=== PATIENT | male | born 1945 | race Caucasian/White ===

== ENCOUNTER → 2017-07-08 | Outpatient (CLI) | payer OTHER ==
[~2017-07-08] MED LIST: ALT/10 PO; CRS/10 PO; EFFSR75 PO; FISHOIL PO; HYDR12.56 PO; MULTTAB58 PO; OMEP20CA59 PO; TRAVATAN 0.004% OPB
[2017-07-08 13:06] LABS: BASO % 0.3 %; BASO ABS # 0.01 K/uL (0-0.2); COMPLETE YES; EOS % 3.4 %; LYMPH % 31.3 %; LYMPH ABS # 1.21 K/uL (1.2-3.4); MEAN CORPUSCULAR HEMOGLOBIN 30.7 pg (25-34); MEAN CORPUSCULAR HGB CONC 34.9 g/dl (32-36); MEAN PLATELET VOLUME 10.9 fL (7.4-10.4); MONO % 11.4 %; NEUT % 53.6 %; PLATELET COUNT 177 K/uL (130-400); RED BLOOD COUNT 4.66 M/uL (4.7-6.1); WHITE BLOOD COUNT 3.87 K/uL (4.8-10.8)
[2017-07-08 13:29] LABS: URINE APPEARANCE CLEAR (CLEAR); URINE BILIRUBIN NEG (NEG); URINE COLOR YELLOW; URINE EPITHELIAL CELL AUTO 0-5 /lpf (0-5); URINE NITRITE NEG (NEG); URINE SPECIFIC GRAVITY 1.022 (1.000-1.030); UROBILINOGEN NEG (NEG)
[2017-07-08 13:38] LABS: MANUAL MICROSCOPIC REQUIRED? NO; REVIEW REQ? NO
[2017-07-08 13:49] LABS: ALT/SGPT 21 U/L (12-78); BLOOD UREA NITROGEN 20 mg/dl (7-18); BUN/CREATININE RATIO 20.2 (10-20); CARBON DIOXIDE 25 mmol/L (21-32); CHLORIDE 112 mmol/L (98-107); CHOLESTEROL 141 mg/dl (0-200); CREATININE 0.98 mg/dl (0.60-1.40); GLUCOSE 114 mg/dl (70-99); POTASSIUM 3.9 mmol/L (3.5-5.1); SODIUM 144 mmol/L (136-145); TRIGLYCERIDES 100 mg/dl (0-150); VERY LOW DENSITY LIPOPROT CALC 20 mg/dl
[2017-07-08 13:59] LABS: ALB/GLOB RATIO 1.3 (0.9-2); ALKALINE PHOSPHATASE 104 U/L (45-117); AST/SGOT 23 U/L (15-37); CHOLESTEROL/HDL RATIO 3.7; HDL CHOLESTEROL 38 mg/dl; LDL CHOLESTEROL CALCULATED 83 mg/dl
== END | disposition home or self-care (01) ==
LOC: C.LABMFLN 10:05
PROVIDERS: ATTEND Physician Assistant
DX: I10 Essential (primary) hypertension (principal); E78.5 Hyperlipidemia, unspecified; F41.9 Anxiety disorder, unspecified; K21.9 Gastro-esophageal reflux disease without esophagitis

== ENCOUNTER → 2018-02-11 | Outpatient (CLI) | payer OTHER ==
[2018-02-11 12:27] LABS: BASO % 0.2 %; BASO ABS # 0.01 K/uL (0-0.2); EOS % 3.7 %; EOS ABS # 0.15 K/uL (0-0.5); HEMATOCRIT 42.6 % (42-52); HEMOGLOBIN 14.5 g/dL (14.0-18.0); IG# 0.01 K/uL (0.00-0.02); LYMPH % 33.7 %; LYMPH ABS # 1.37 K/uL (1.2-3.4); MEAN CELL VOLUME 88.4 fL (80-100); MEAN CORPUSCULAR HEMOGLOBIN 30.1 pg (25-34); MEAN PLATELET VOLUME 10.7 fL (7.4-10.4); MONO % 13.5 %; MONO ABS # 0.55 K/uL (0.11-0.59); NEUT % 48.7 %; NEUT ABS # 1.97 K/uL (1.4-6.5); PLATELET COUNT 182 K/uL (130-400); RED CELL DISTRIBUTION WIDTH CV 12.5 % (11.5-14.5); RED CELL DISTRIBUTION WIDTH SD 40.2 fL (36.4-46.3); WHITE BLOOD COUNT 4.06 K/uL (4.8-10.8)
[2018-02-11 13:03] LABS: ALBUMIN 4.1 gm/dl (3.4-5.0); ALT/SGPT 26 U/L (12-78); AST/SGOT 30 U/L (15-37); BLOOD UREA NITROGEN 16 mg/dl (7-18); CALCIUM 8.6 mg/dl (8.5-10.1); CARBON DIOXIDE 27 mmol/L (21-32); CREATININE 1.06 mg/dl (0.60-1.40); GLUCOSE 108 mg/dl (70-99); SODIUM 143 mmol/L (136-145)
[2018-02-11 13:12] LABS: HEMOGLOBIN A1C 5.6 % (4.5-5.6)
[2018-02-11 13:14] LABS: ALKALINE PHOSPHATASE 104 U/L (45-117); CHOLESTEROL 117 mg/dl (0-200); LDL CHOLESTEROL CALCULATED 59 mg/dl; TOTAL PROTEIN 7.7 gm/dl (6.4-8.2)
== END | disposition home or self-care (01) ==
LOC: C.LABMFLN 09:02
PROVIDERS: ATTEND Physician Assistant
DX: I10 Essential (primary) hypertension (principal); E78.5 Hyperlipidemia, unspecified; K21.9 Gastro-esophageal reflux disease without esophagitis; R73.01 Impaired fasting glucose

== ENCOUNTER 2020-10-17 18:30 | Inpatient (IN) ==
[2020-10-17] MEDS ORDERED: SODIUM CHLORIDE 0.9% 1000ML 1,000 ML IV SCH ×2 (19:02→19:15)
[2020-10-17] MEDS ORDERED: cefOXitin 2,000 MG/60 ML BAG IV STA (19:02)
--- NOTE | 2020-10-17 19:02 | Emergency Department Note ---
History of Present Illness General Chief complaint: Referred by Doctor Stated complaint: JUST HAD A CT AND DR PEREZ OVER Time Seen by Provider: 10/17/20 18:46 History of Present Illness Patient is a 74-year-old male with past medical history significant for hypertension, dyslipidemia, GERD, and BPH, who presents emergency department from CT for evaluation of an abnormal CT scan performed about an hour ago. Alicia ent was seen at his primary care provider's office this morning after he woke with very low right lower quadrant pain around 0300 today. Pain was dull but constant in nature and worse with certain movement like walking. He did not take anything for discomfort today, and currently rates his pain a 6/10. He had an appointment with his primary care provider, and an outpatient CT scan about an hour ago which is concerning for acute appendicitis. Last oral intake was clear broth at 1200 today. Patient did vomit in CT. Of note, patient contracted COVID-19 in mid August 2020. He did require an 8- day hospitalization at [facility] over [facility], and he reports that he was diagnosed with a bilateral pneumonia. He reports he had a recent repeat chest x-ray for follow-up, which was "clear." Home Medications Medication Instructions Recorded Confirmed Type aspirin 81 mg tablet,delayed 81 mg PO DAILY #90 tab 08/11/19 10/17/20 History release multivitamin 1 tab PO DAILY 08/11/19 10/17/20 History sildenafil (pulm.hypertension) 20 20 mg PO .COMPLEX #20 tab 08/26/19 10/17/20 Rx mg tablet travoprost 0.004 % eye drops 1 drops OP QPM 08/26/19 10/17/20 History metoprolol succinate 25 mg See Rx Instructions .ROUTE 05/03/20 10/17/20 Rx tablet,extended release 24 hr .COMPLEX #90 tablet tamsulosin 0.4 mg capsule 0.8 mg PO DAILY #180 cap 05/11/20 10/17/20 Rx omeprazole 40 mg capsule,delayed 40 mg PO DAILY #30 cap 05/28/20 10/17/20 Rx release rosuvastatin 20 mg tablet See Rx Instructions .ROUTE 05/31/20 10/17/20 Rx .COMPLEX #90 tablet ramipril 10 mg capsule 10 mg PO DAILY #90 cap 06/25/20 10/17/20 Rx fexofenadine 180 mg tablet 180 mg PO DAILY #90 tab 10/03/20 10/17/20 Rx venlafaxine 75 mg capsule,extended 75 mg PO DAILY #90 cap 10/03/20 10/17/20 Rx release 24 hr Allergies Allergy/AdvReac Type Severity Reaction Status Date / Time No Known Allergies Allergy Verified 10/17/20 11:13 Past Med/Surg History Medical History (Updated 10/17/20 @ 19:07 by Bashir Retana) Anxiety Celiac artery stenosis Erectile dysfunction GERD (gastroesophageal reflux disease) Glaucoma (Unknown) Hyperlipidemia Hypertension Impaired fasting glucose Nocturia Surgical History History of cardiac catheterization History of hand surgery History of lithotripsy History of repair of rotator cuff History of tonsillectomy and adenoidectomy Family History Mother Breast cancer Stroke MVA (motor vehicle accident) Father Stroke MVA (motor vehicle accident) Family/Other MVA (motor vehicle accident) Sister Cancer Brother Colorectal cancer Lung cancer Denies family history of Ovarian cancer Prostate cancer Myocardial infarction Social History Smoking Status: Never smoker Age Started Using Tobacco: 16; Age Quit Using Tobacco: 35; packs per day: 2.5; Second Hand Exposure: No; Hx Alcohol Use: Yes Alcohol type: beer Hx Substance Use: No Preferred Language: Lithuanian Communication Ability: Effective Visual Impairment: Partially Limited Hearing Ability: Use of Hearing Aid [place]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 Required: No Beliefs That Will Affect Care: None marital status: Current Living Situation: Spouse and Family Current Living Situation Comment: 3 great-granddaughters current occupational status: retired Feels Safe at Home: Yes Childhood Exposure to Second-Hand Smoke: No caffeine: Yes (decaf coffee, tea) during the past year weight has: remained stable Dental Care, Regularly: Yes Physical Activity Frequency: Daily Seatbelt Use: always Sunscreen Use: Yes (sometimes) Do you think of yourself as: straight/heterosexual Review of Systems A total of 10 systems reviewed and were otherwise negative Physical Exam Vital Signs Vital Signs - 24 hr 10/17/20 18:43 Temperature 36.4 C L Temperature Source Oral Pulse Rate 76 Pulse Rhythm Regular Pulse Strength Normal Respiratory Rate 20 Blood Pressure 132/75 Blood Pressure Mean 94 Blood Pressure Position Sitting Pulse Oximetry 95 Oxygen Delivery Method Room Air Sepsis Recent Fever Within 48 Hours No Sepsis New/Unexplained Change in Mental Status No Sepsis Action Taken by Nursing No Action Required CONSTITUTIONAL: Patient is a pleasant, well-appearing 74-year-old male who is awake and alert and in no acute distress. HEENT: Normocephalic, atraumatic. Pupils equal, round, reactive to light and accommodation. EOMs intact without nystagmus. Sclera are anicteric. Tympanic membranes intact, with normal landmarks. External canals are clear. Oral and nasopharynx are clear. Mucous membranes are moist. CARDIOVASCULAR: Regular rate and rhythm. Peripheral pulses easily palpable. RESPIRATORY: Breath sounds equal and clear to auscultation. ABDOMEN: Bowel sounds are present. Abdomen is soft, nondistended, nontender to percussion throughout, and tender to palpation in the right lower quadrant, with voluntary guarding. INTEGUMENTARY: No lesions or rash, normal skin turgor. LYMPH: No lymphadenopathy. Course Course The patient was seen and assessed as above. Old records were reviewed. BMP from earlier today was within normal limits. CT scan of the abdomen pelvis with IV and oral contrast notes a dilated fluid-filled appendix with marked periappendiceal stranding. No evidence for abscess. No free air. Preoperative testing was ordered including an EKG, chest x-ray, CBC and a Covid test. The patient was hydrated with normal saline solution. Consultation was placed with Dr. Lam with general surgery. He requested 2 g of Mefoxin be ordered. CBC notes a normal white count at 8100. Slight anemia noted. Chest x-ray noted no focal consolidation. Mild interstitial thickening with a basilar predominance noted. This is likely residual from the patient's Covid pneumonia. Dr. Lam saw the patient in the emergency department, and plan is to take him to the OR this evening for appendectomy. Case was reviewed with attending physician. Administered Medications Sodium Chloride (Nss 1000ml) 1,000 mls @ 999 mls/hr IV .Q1H1M BJ Stop: 10/17/20 20:02 Last Admin: 10/17/20 19:30 Dose: 999 mls/hr Documented by: [id number] Discontinued Medications Cefoxitin Sodium (Mefoxin) 2,000 mg in 60 mls @ 100 mls/hr IV NOW STA Stop: 10/17/20 19:37 Last Admin: 10/17/20 19:29 Dose: 100 mls/hr Documented by: [id number] Medical Decision Making Differential Diagnosis Differential diagnoses included UTI, pyelonephritis, renal colic, acute appendicitis, hernia, shingles, bowel obstruction, perforation, abscess, mus culoskeletal pain, among others. Medical Records Attestation: I reviewed the patient's medical records. Home Medications Current Medication List: was personally reviewed by me Laboratory Data Attestation: I reviewed the patient's lab results. Result diagrams: 10/17/20 19:02 Lab Results 10/17/20 10/17/20 10/17/20 Range/Units 19:02 19:03 19:03 WBC 8.18 (4.8-10.8) K/uL RBC 4.27 L (4.7-6.1) M/uL Hgb 13.2 L (14.0-18.0) g/dL Hct 39.4 L (42-52) % MCV 92.3 (80-100) fL MCH 30.9 (25-34) pg MCHC 33.5 (32-36) g/dL RDW Std Deviation 46.8 H (36.4-46.3) fL RDW Coeff of Zheng 14.0 (11.5-14.5) % Plt Count 192 (130-400) K/uL MPV 9.4 (7.4-10.4) fL Immature Gran % (Auto) 0.1 % Neut % (Auto) 63.4 % Lymph % (Auto) 20.0 % Hamlin % (Auto) 15.2 % Eos % (Auto) 1.2 % Baso % (Auto) 0.1 % Neut # (Auto) 5.18 (1.4-6.5) K/uL Lymph # (Auto) 1.64 (1.2-3.4) K/uL Hamlin # (Auto) 1.24 H (0.11-0.59) K/uL Eos # (Auto) 0.10 (0-0.5) K/uL Baso # (Auto) 0.01 (0-0.2) K/uL Immature Gran # (Auto) 0.01 (0.00-0.02) K/uL COVID-19 [facility] SARS-CoV-2, RNA, NAAT NEGATIVE (NEGATIVE) Imaging Data Attestation: I personally reviewed and interpreted this imaging study as follows: Radiologist's Impression: CT abd pelvis oral and IV con CLINICAL HISTORY: R10.31 - Right lower quadrant pain COMPARISON STUDY: None. TECHNIQUE: The patient was scanned following administration of dilute oral contrast, and in a dynamic helical fashion during intravenous administration of 93 cc of Optiray 320. The patient vomited 70 seconds into the scan. A dose lowering technique was utilized adhering to the principles of ALARA. CT DOSE: 649.39 mGy.cm FINDINGS: Lower chest: There is subtle groundglass attenuation the lung bases, atelectatic versus infectious/inflammatory. Liver: The contrast-enhanced liver is normal in size, contour, and attenuation. There is no intrahepatic biliary ductal dilatation. The hepatic veins and portal veins are patent. Gallbladder: Unremarkable. Spleen: Normal in size and attenuation. Pancreas: Unremarkable. Adrenal glands: Unremarkable. Kidneys: There are small bilateral renal cysts. There is no evidence of hydronephrosis. Bowel: There are no transition zones to indicate bowel obstruction. There is no evidence of acute diverticulitis. There is a dilated fluid-filled appendix with marked periappendiceal stranding.. There is no drainable periappendiceal abscess. Peritoneum: There is no intraperitoneal free air or abdominal ascites. Vasculature: The abdominal aorta is normal in course and caliber. Adenopathy: None. Pelvic viscera: The prostate is enlarged. Skeletal structures: No destructive osseous lesions are seen. IMPRESSION: 1. Acute appendicitis. Surgical consultation is recommended. 2. Prostatomegaly 3. Lower lung zone groundglass opacities, atelectatic versus infectious/inflammatory MDM Narrative See ED course. Impression & Plan Acute appendicitis Discharge Plan Visit Data Chief Complaint: Referred by Doctor Stated Complaint: JUST HAD A CT AND REF OVER ED Provider: Matthew Molina ED Midlevel Provider: Bashir Retana Discharge Problem: Acute appendicitis Patient Disposition: Being Evaluated by Surgeon Forms Stand Alone Forms: My [facility] Prescriptions Prescriptions: No Action metoprolol succinate 25 mg tablet extended release 24 hr See Rx Instructions .ROUTE .COMPLEX Qty: 90 RF: 1 tamsulosin 0.4 mg capsule 0.8 mg PO DAILY Qty: 180 RF: 1 omeprazole 40 mg capsule,delayed release(DR/EC) 40 mg PO DAILY Qty: 30 RF: 5 rosuvastatin 20 mg tablet See Rx Instructions .ROUTE .COMPLEX Qty: 90 RF: 1 ramipril 10 mg capsule 10 mg PO DAILY Qty: 90 RF: 1 fexofenadine [Tasha Allergy] 180 mg tablet 180 mg PO DAILY Qty: 90 RF: 1 venlafaxine 75 mg capsule,extended release 24hr 75 mg PO DAILY Qty: 90 RF: 1 aspirin 81 mg tablet,delayed release (DR/EC) 81 mg PO DAILY Qty: 90 RF: 0 multivitamin tablet 1 tab PO DAILY RF: 0 Travatan Z 0.004 % drops 1 drops OP QPM RF: 0 sildenafil (pulm.hypertension) 20 mg tablet 20 mg PO .COMPLEX Qty: 20 RF: 2 Referrals Referrals: Soniya Will PA-C [Primary Care Provider] - Discharge Problem: Acute appendicitis Qualifiers: Acute appendicitis type: with localized peritonitis Appendicitis gangrene presence: without gangrene Appendicitis perforation presence: without perforation Appendicitis abscess presence: without abscess Qualified Code(s): K35.30 - Acute appendicitis with localized peritonitis, without perforation or gangrene
[2020-10-17 19:20] LABS: Basophils # (auto) 0.01 K/uL (0-0.2); Basophils % (auto) 0.1 %; Eosinophils % (auto) 1.2 %; Hematocrit (blood only) 39.4 % (42-52); Hemoglobin 13.2 g/dL (14.0-18.0); Immature Granulocytes # (auto) 0.01 K/uL (0.00-0.02); Immature Granulocytes % (auto) 0.1 %; Lymphocytes # (auto) 1.64 K/uL (1.2-3.4); Mean Corpuscular Hemoglobin 30.9 pg (25-34); Mean Corpuscular Hgb Conc 33.5 g/dL (32-36); Mean Corpuscular Volume 92.3 fL (80-100); Mean Platelet Volume 9.4 fL (7.4-10.4); Monocytes # (auto) 1.24 K/uL (0.11-0.59); Monocytes % (auto) 15.2 %; Neutrophils # (auto) 5.18 K/uL (1.4-6.5); Neutrophils % (auto) 63.4 %; Platelet Count 192 K/uL (130-400); RDW Standard Deviation 46.8 fL (36.4-46.3); Red Blood Count 4.27 M/uL (4.7-6.1); White Blood Count 8.18 K/uL (4.8-10.8)
--- NOTE | 2020-10-17 19:22 | XRay Report ---
XR chest 1V portable CLINICAL HISTORY: Preoperative chest COMPARISON STUDY: 12/18/2010 FINDINGS: The heart is the upper limits of normal in size. There is aortic tortuosity. There is no lo bar consolidation. There is minor nonspecific interstitial thickening with a basilar predominance.[ IMPRESSION: 1. No evidence of focal pulmonary consolidation 2. Mild interstitial thickening with a basilar predominance ACT 112: Negative or not required by law. Electronically signed by: Kishore Solorzano M.D. 10/17/2020 7:21 PM
--- NOTE | 2020-10-17 19:42 | History & Physical Report ---
Date of Service October 17, 2020 Assessment & Plan (1) Acute appendicitis: Patient with acute appendicitis. Plan is for laparoscopic appendectomy possible open appendectomy He may need his drain in several days in the hospital depending on her findings We will retest him for Covid Acute appendicitis type: with localized peritonitis Appendicitis abscess presence: without abscess Appendicitis gangrene presence: without gangrene Appendicitis perforation presence: without perforation Qualified Code(s): K35.30 - Acute appendicitis with localized peritonitis, without perforation or gangrene History of Present Illness Primary Care Provider: Soniya Will PA-C 74-year-old male who presents the emergency room with persistent abdominal pain localized to the right lower quadrant Found on CAT scan to have acute appendicitis On 08/20/2020 he did test positive for Covid Allergies Allergy/AdvReac Type Severity Reaction Status Date / Time No Known Allergies Allergy Verified 10/17/20 11:13 Home Medications Medication Instructions Recorded Confirmed Type aspirin 81 mg tablet,delayed 81 mg PO DAILY #90 tab 08/11/19 10/17/20 History release multivitamin 1 tab PO DAILY 08/11/19 10/17/20 History sildenafil (pulm.hypertension) 20 20 mg PO .COMPLEX #20 tab 08/26/19 10/17/20 Rx mg tablet travoprost 0.004 % eye drops 1 drops OP QPM 08/26/19 10/17/20 History metoprolol succinate 25 mg See Rx Instructions .ROUTE 05/03/20 10/17/20 Rx tablet,extended release 24 hr .COMPLEX #90 tablet tamsulosin 0.4 mg capsule 0.8 mg PO DAILY #180 cap 05/11/20 10/17/20 Rx omeprazole 40 mg capsule,delayed 40 mg PO DAILY #30 cap 05/28/20 10/17/20 Rx release rosuvastatin 20 mg tablet See Rx Instructions .ROUTE 05/31/20 10/17/20 Rx .COMPLEX #90 tablet ramipril 10 mg capsule 10 mg PO DAILY #90 cap 06/25/20 10/17/20 Rx fexofenadine 180 mg tablet 180 mg PO DAILY #90 tab 10/03/20 10/17/20 Rx venlafaxine 75 mg capsule,extended 75 mg PO DAILY #90 cap 10/03/20 10/17/20 Rx release 24 hr Past Med/Surg History Medical History (Updated 10/17/20 @ 19:07 by Bashir Retana) Anxiety Celiac artery stenosis Erectile dysfunction GERD (gastroesophageal reflux disease) Glaucoma (Unknown) Hyperlipidemia Hypertension Impaired fasting glucose Nocturia Surgical History History of cardiac catheterization History of hand surgery History of lithotripsy History of repair of rotator cuff History of tonsillectomy and adenoidectomy Family History Mother Breast cancer Stroke MVA (motor vehicle accident) Father Stroke MVA (motor vehicle accident) Family/Other MVA (motor vehicle accident) Sister Cancer Brother Colorectal cancer Lung cancer Denies family history of Ovarian cancer Prostate cancer Myocardial infarction Social History Smoking Status: Never smoker Age Started Using Tobacco: 16; Age Quit Using Tobacco: 35; packs per day: 2.5; Second Hand Exposure: No; Hx Alcohol Use: Yes Alcohol type: beer Hx Substance Use: No Preferred Language: Emirati Communication Ability: Effective Visual Impairment: Partially Limited Hearing Ability: Use of Hearing Aid Inspection And Testing Supervisor Required: No Beliefs That Will Affect Care: None marital status: Current Living Situation: Spouse and Family Current Living Situation Comment: 3 great-granddaughters current occupational status: retired Feels Safe at Home: Yes Childhood Exposure to Second-Hand Smoke: No caffeine: Yes (decaf coffee, tea) during the past year weight has: remained stable Dental Care, Regularly: Yes Physical Activity Frequency: Daily Seatbelt Use: always Sunscreen Use: Yes (sometimes) Do you think of yourself as: straight/heterosexual Review of Systems All systems reviewed & are unremarkable except as noted in HPI & below Physical Exam Constitutional: well developed; no acute distress Eyes: + anicteric sclerae Respiratory: normal respiratory effort; no respiratory distress Cardiovascular: Rate/Rhythm: regular rate Gastrointestinal (Abdomen): Percussion/Palpation: + abdomen tender and abdomen soft Patient has tenderness in right lower quadrant Musculoskeletal: Head/Neck/Chest: head atraumatic Skin: no rashes, warm and dry Neurologic: awake Psychiatric: Orientation: alert Results & Data ([facility]) Vital Signs (Past 12 Hours) Vital Signs Temp Pulse Resp BP Pulse Ox 10/17/20 18:43 36.4 C L 76 20 132/75 95 I did review his CAT scan
[2020-10-17] MEDS ORDERED: ePHEDrine sulfate 50 MG/ML AMP IV PRN (20:00)
[2020-10-17] MEDS ORDERED: ONDANSETRON INJ 2 MG/ML 2 ML VIAL IV PRN ×2 (20:00→21:32)
[2020-10-17] MEDS ORDERED: HYDROmorphone INJ 1 MG/ML SYRINGE IV PRN ×2 (20:00→21:32)
[2020-10-17] MEDS ORDERED: fentaNYL citrate 100 MCG/2 ML VIAL IV PRN (20:00)
[2020-10-17] MEDS ORDERED: ATROPINE SULFATE 0.1 MG/ML 10ML SYR IV PRN (20:00)
[2020-10-17] MEDS ORDERED: LABETALOL HCL IV 5 MG/ML 20ML IV PRN (20:00)
[2020-10-17] MEDS ORDERED: MEPERIDINE HCL 25 MG/ML CARP/VIAL IV PRN (20:00)
[2020-10-17] MEDS ORDERED: PHENYLEPHRINE 100MCG/ML 5ML SYR IV PRN (20:00)
[2020-10-17] MEDS ORDERED: BUPIVACAINE 0.5 % 5 MG/1 ML MPF 30ML VIAL ONE (20:01)
--- NOTE | 2020-10-17 20:02 | Anesthesiology Consultation ---
Date of Service October 17, 2020 The patient tested positive for Covid 19 on 08/20/20. He tested negative for Covid 19 today. Assessment & Plan (1) Encounter for pre-operative examination: Chart Review Chart Review: Acceptable Risk for Surgery and Patient NOT seen in Pre Admission Testing Consults Requested none History Surgery Operation Date: 10/17/20 19:50 Proposed Procedures p Laparoscopic Appendectomy - Mike Lam MD, FACS Height/Weight Height: 5 ft 7 in Weight: 70.7 kg Allergies Allergy/AdvReac Type Severity Reaction Status Date / Time No Known Allergies Allergy Verified 10/17/20 11:13 Medications Home Medications Medication Instructions Recorded Confirmed Last Taken aspirin 81 mg tablet,delayed 81 mg PO DAILY #90 tab 08/11/19 10/17/20 Unknown release multivitamin 1 tab PO DAILY 08/11/19 10/17/20 Unknown sildenafil (pulm.hypertension) 20 20 mg PO .COMPLEX #20 tab 08/26/19 10/17/20 Unknown mg tablet travoprost 0.004 % eye drops 1 drops OP QPM 08/26/19 10/17/20 Unknown metoprolol succinate 25 mg See Rx Instructions .ROUTE 05/03/20 10/17/20 Unknown tablet,extended release 24 hr .COMPLEX #90 tablet tamsulosin 0.4 mg capsule 0.8 mg PO DAILY #180 cap 05/11/20 10/17/20 Unknown omeprazole 40 mg capsule,delayed 40 mg PO DAILY #30 cap 05/28/20 10/17/20 Unknown release rosuvastatin 20 mg tablet See Rx Instructions .ROUTE 05/31/20 10/17/20 Unknown .COMPLEX #90 tablet ramipril 10 mg capsule 10 mg PO DAILY #90 cap 06/25/20 10/17/20 Unknown fexofenadine 180 mg tablet 180 mg PO DAILY #90 tab 10/03/20 10/17/20 Unknown venlafaxine 75 mg capsule,extended 75 mg PO DAILY #90 cap 10/03/20 10/17/20 Unknown release 24 hr NPO Date Last Intake of Fluids: 10/17/20 Time Last Intake of Fluids: 12:00 Date Last Intake of Solids: 10/17/20 Time Last Intake of Solids: 12:00 Past Medical History Medical History (Updated 10/17/20 @ 20:05 by Hair De Dios MD) Anxiety Celiac artery stenosis Erectile dysfunction GERD (gastroesophageal reflux disease) Glaucoma (Unknown) Hyperlipidemia Hypertension Impaired fasting glucose Nocturia Past Family History Family History Mother Breast cancer Stroke MVA (motor vehicle accident) Father Stroke MVA (motor vehicle accident) Family/Other MVA (motor vehicle accident) Sister Cancer Brother Colorectal cancer Lung cancer Denies family history of Ovarian cancer Prostate cancer Myocardial infarction Past Surgical History Surgical History History of cardiac catheterization History of hand surgery History of lithotripsy History of repair of rotator cuff History of tonsillectomy and adenoidectomy Social History Smoking Status: Never smoker tobacco type: cigarettes Hx Alcohol Use: Yes Alcohol type: beer Hx Substance Use: No Physical Exam Vital Signs Last Vital Signs Temp 36.4 C L 10/17/20 18:43 Pulse 76 10/17/20 18:43 Resp 20 10/17/20 18:43 BP 132/75 10/17/20 18:43 Pulse Ox 95 10/17/20 18:43 Testing Laboratory Results 10/17/20 19:02 Electrocardiogram Date: 10/17/20 Findings: + NSST changes (inferior) SR with occasional PVCs, rate 75 Chest X-Ray Date: 10/17/20 XR chest 1V portable CLINICAL HISTORY: Preoperative chest COMPARISON STUDY: 12/18/2010 FINDINGS: The heart is the upper limits of normal in size. There is aortic tortuosity. There is no lobar consolidation. There is minor nonspecific interstitial thickening with a basilar predominance.[ IMPRESSION: 1. No evidence of focal pulmonary consolidation 2. Mild interstitial thickening with a basilar predominance ACT 112: Negative or not required by law. Electronically signed by: Kishore Solorzano M.D. 10/17/2020 7:21 PM Dictated: 10/17/201919Transcribed: 10/17/[address] abd pelvis oral and IV con CLINICAL HISTORY: R10.31 - Right lower quadrant pain COMPARISON STUDY: None. TECHNIQUE: The patient was scanned following administration of dilute oral contrast, and in a dynamic helical fashion during intravenous administration of 93 cc of Optiray 320. The patient vomited 70 seconds into the scan. A dose lowering technique was utilized adhering to the principles of ALARA. CT DOSE: 649.39 mGy.cm FINDINGS: Lower chest: There is subtle groundglass attenuation the lung bases, atelectatic versus infectious/inflammatory. Liver: The contrast-enhanced liver is normal in size, contour, and attenuation. There is no intrahepatic biliary ductal dilatation. The hepatic veins and portal veins are patent. Gallbladder: Unremarkable. Spleen: Normal in size and attenuation. Pancreas: Unremarkable. Adrenal glands: Unremarkable. Kidneys: There are small bilateral renal cysts. There is no evidence of hydronephrosis. Bowel: There are no transition zones to indicate bowel obstruction. There is no evidence of acute diverticulitis. There is a dilated fluid-filled appendix with marked periappendiceal stranding.. There is no drainable periappendiceal abscess. Peritoneum: There is no intraperitoneal free air or abdominal ascites. Vasculature: The abdominal aorta is normal in course and caliber. Adenopathy: None. Pelvic viscera: The prostate is enlarged. Skeletal structures: No destructive osseous lesions are seen. IMPRESSION: 1. Acute appendicitis. Surgical consultation is recommended. 2. Prostatomegaly 3. Lower lung zone groundglass opacities, atelectatic versus infectious/inflammatory ACT 112: Negative or not required by law. Electronically signed by: Kishore Solorzano M.D. 10/17/2020 6:09 PM Dictated: 10/17/201802Transcribed: 10/17/201807
[2020-10-17] MEDS ORDERED: NEOSTIGMINE METHYLSULFATE 5 MG/5 ML SYR ONE (20:04)
[2020-10-17] MEDS ORDERED: PROPOFOL IV EMULSION 10 MG/ML 20 ML VIAL IV ONE (20:04)
[2020-10-17] MEDS ORDERED: GLYCOPYRROLATE 0.2 MG/ML VIAL ONE (20:04)
[2020-10-17] MEDS ORDERED: DEXAMETHASONE SOD INJ 4 MG/ML VIAL ONE (20:04)
[2020-10-17] MEDS ORDERED: ROCURONIUM BROMIDE 10 MG/ML 5 ML VIAL IV ONE (20:04)
[2020-10-17] MEDS ORDERED: LIDOCAINE HCL 2% 2 ML VIAL/AMP(20MG/ML) INFIL ONE (20:04)
[2020-10-17] MEDS ORDERED: ONDANSETRON INJ 2 MG/ML 2 ML VIAL ONE (20:04)
[2020-10-17] MEDS ORDERED: fentaNYL citrate 100 MCG/2 ML VIAL ONE ×2 (20:04→21:28)
[2020-10-17] MEDS ORDERED: ACETAMINOPHEN 1,000 MG/100 ML VIAL IV ONE (21:31)
--- NOTE | 2020-10-17 21:31 | Post Operative Brief Note ---
PG Immediate Post Op with CF Date of Surgery October 17, 2020 Pre & Post Diagnosis Operation Date: 10/17/20 19:50 Pre-Op Diagnosis: Acute appendicitis Post-Op Diagnosis: Acute appendicitis Gangrenous appendix with exudate I identified the patient and participated in the time-out.: Yes Procedure Operation Date: 10/17/20 19:50 Actual Procedures p Laparoscopic Appendectomy - Mike Lam MD, FACS Surgeon Mike Lam MD, FACS Educational Therapy Teacher nurses Estimated Blood Loss 5 Findings Consistent with Post-Op Diagnosis Specimens Specimen Description: A. appendix Drains Keven-Marie Drain
[2020-10-17] MEDS ORDERED: HYDROmorphone INJ 0.5 MG/0.5 ML SYR IV PRN (21:32)
[2020-10-17] MEDS ORDERED: ACETAMINOPHEN 325 MG TAB PO PRN (21:32)
[2020-10-17] MEDS ORDERED: HYDROCODONE/ACETAMOPHEN 5/325MG TAB PO PRN (21:32)
[2020-10-17] MEDS ORDERED: PROMETHAZINE HCL 12.5 MG in SODIUM CHLORIDE 0.9% 50 ML IV PRN (21:32)
[2020-10-17] MEDS ORDERED: ACETAMINOPHEN 1000 MG/100 ML IV IV ONE (21:44)
--- NOTE | 2020-10-17 22:14 | Anesthesiology Progress Note ---
Date of Service October 17, 2020 Anesthesia Post Procedure Vital Signs Vital Signs: Temp Pulse Pulse Resp BP BP Pulse Ox 10/17/20 22:05 36.8 C 70 19 115/57 L 93 10/17/20 21:55 65 15 113/55 L 93 10/17/20 21:45 64 15 115/48 L 93 10/17/20 21:39 36.8 C 67 17 114/55 L 93 10/17/20 20:11 75 16 126/74 96 10/17/20 18:43 36.4 C L 76 20 132/75 95 Transfer of Care Handoff Completed per policy Notes Mental Status: alert / awake / arousable Patient Amnestic to Procedure: Yes Nausea / Vomiting: adequately controlled Pain: adequately controlled Airway Patency, RR, SpO2: stable & adequate BP & HR: stable & adequate Hydration State: stable & adequate Anesthetic Complications: no major complications apparent and Pt Satisfied with anesthetic care
[2020-10-18] MEDS: HYDROCODONE/ACETAMOPHEN 5/325MG TAB PO PRN ×2 (00:03→00:39)
[2020-10-18] MEDS: SODIUM CHLORIDE 0.9% 1000ML 1,000 ML IV SCH ×3 (01:57→22:40)
--- NOTE | 2020-10-18 02:34 | Operative Report (OR) ---
DATE OF OPERATION: 10/17/2020 NAME OF OPERATION: Laparoscopic appendectomy. PREOPERATIVE DIAGNOSIS: Acute appendicitis. POSTOPERATIVE DIAGNOSIS: Acute appendicitis with gangrenous appendix and exudate. STAFF SURGEON: Mike Lam MD. NIGHT FILLER: Nurses. ANESTHESIA: General. DESCRIPTION OF PROCEDURE: The patient was brought in the operating room and placed on the operating table in supine position. His abdomen was prepped and draped in usual fashion. 0.5% plain Marcaine was used to anesthetize all incisions. Incision was made above the umbilicus, carrying dissection down, placing a Veress needle through the fascia producing pneumoperitoneum, placing an 11 mm port. On examination, the patient did have an exudate in the right lower quadrant with adhesions and cloudy fluid in the pelvis. A 5 mm port was placed suprapubically and a 12 mm port placed in left lower quadrant. I aspirated the fluid and then using blunt dissection, I was able to mobilize the tissue away from the abdominal wall, identifying the appendix, which was gangrenous with an exudate. The base of the appendix was transected using an Endo-GERARDO stapler. Then, the mesoappendix transected using the Endo GERARDO stapler. Appendix was placed in an Endobag and removed through the left lower quadrant port site. After that, irrigation was performed in the right lower quadrant and pelvis. A 15 round Keven-Marie drain placed through the 5 mm port site, secured using 3-0 nylon suture, placed into the right lower quadrant and pelvis. All ports were then removed. Fascia closed using 0 Vicryl at the umbilicus and 0 PDS at the left lower quadrant site. Skin reapproximated using 4-0 Monocryl and then Dermabond at the umbilicus and Steri-Strips in the left lower quadrant. The patient was transferred to recovery room in stable condition. I attest to the content of the Intraoperative Record and any orders documented therein. Any exception s are noted below.
[2020-10-18 06:22] LABS: Hematocrit (blood only) 37.7 % (42-52); Hemoglobin 12.2 g/dL (14.0-18.0); Lymphocytes # (auto) 0.73 K/uL (1.2-3.4); Lymphocytes % (auto) 11.2 %; Mean Corpuscular Hemoglobin 29.7 pg (25-34); Mean Corpuscular Hgb Conc 32.4 g/dL (32-36); Mean Corpuscular Volume 91.7 fL (80-100); Mean Platelet Volume 9.4 fL (7.4-10.4); Monocytes # (auto) 0.23 K/uL (0.11-0.59); Monocytes % (auto) 3.5 %; Neutrophils # (auto) 5.55 K/uL (1.4-6.5); Neutrophils % (auto) 85.3 %; Platelet Count 190 K/uL (130-400); RDW Coefficient of Variation 13.9 % (11.5-14.5); RDW Standard Deviation 46.9 fL (36.4-46.3); Red Blood Count 4.11 M/uL (4.7-6.1); White Blood Count 6.51 K/uL (4.8-10.8)
--- NOTE | 2020-10-18 06:36 | Surgery Progress Note ---
Date of Service October 18, 2020 Assessment & Plan (1) S/P laparoscopic appendectomy: Patient status post laparoscopic appendectomy for gangrenous appendix with exudate and cloudy fluid in the pelvis May have some mild urinary retention we will monitor closely and straight cath as needed, Curtis if frequent straight cath needed Continue IV antibiotics Advance his diet-monitor for ileus which is not uncommon in this situation Patient may need additional 1 to 3 days in the hospital depending on progress Admission and Anticipated Discharge Date Admission Date: October 17, 2020 Results & Data ([facility]) Vital Signs (Past 12 Hours) Vital Signs Temp Pulse Pulse Pulse Resp BP BP 10/18/20 04:15 36.8 C 79 19 135/72 10/18/20 01:30 36.5 C 76 18 10/18/20 00:40 36.7 C 77 18 10/17/20 23:30 36.9 C 67 16 10/17/20 22:58 36.9 C 67 15 10/17/20 22:30 37.0 C 93 H 18 10/17/20 22:15 36.8 C 67 19 10/17/20 22:05 36.8 C 70 19 10/17/20 21:55 65 15 10/17/20 21:45 64 15 10/17/20 21:39 36.8 C 67 17 10/17/20 20:11 75 16 126/74 10/17/20 18:43 36.4 C L 76 20 132/75 BP Pulse Ox 10/18/20 04:15 93 10/18/20 01:30 143/67 H 93 10/18/20 00:40 147/75 H 94 10/17/20 23:30 111/64 94 10/17/20 22:58 111/64 94 10/17/20 22:30 114/67 93 10/17/20 22:15 115/52 L 92 10/17/20 22:05 115/57 L 93 10/17/20 21:55 113/55 L 93 10/17/20 21:45 115/48 L 93 10/17/20 21:39 114/55 L 93 10/17/20 20:11 96 10/17/20 18:43 95 PG Care Time/CCT Total # of Minutes Spent Total Time Spent with Patient: Total time spent is greater than 50% in coordination of care (as documented) at patient's floor/unit and/or counseling patient: Coding Level of Care Code None Diagnoses S/P laparoscopic appendectomy Z90.49
[2020-10-18 06:54] LABS: Albumin Level 3.3 gm/dl (3.4-5.0); BUN Creatinine Ratio 13.1 (10-20); Calcium 8.5 mg/dl (8.5-10.1); Est GFR (African American) 92.7; Potassium 4.1 mmol/L (3.5-5.1)
[2020-10-18 06:59] LABS: Albumin Globulin Ratio 0.9 (0.9-2); Bilirubin,Total 1.8 mg/dl (0.2-1); Globulin 3.8 gm/dl (2.5-4.0); Phosphorus 3.1 mg/dl (2.5-4.9); Total Protein 7.1 gm/dl (6.4-8.2)
[2020-10-18] MEDS: HEPARIN SOD 5,000 UNIT/0.5 ML VIAL SQ SCH ×2 (08:45→20:26)
[2020-10-18] MEDS: DOCUSATE SODIUM/SENNA 50/8.6MG TAB PO SCH ×2 (10:54→20:26)
[2020-10-18] MEDS: MAGNESIUM HYDROXIDE SUSP 30 ML UDC PO SCH ×2 (10:54→20:26)
[2020-10-18] MEDS: ENALAPRIL MALEATE 10 MG TAB PO SCH (14:13)
[2020-10-18] MEDS: TAMSULOSIN HCL 0.4 MG CAP PO SCH (14:13)
--- NOTE | 2020-10-18 15:47 | Hospitalist Consultation ---
Date of Consultation October 18, 2020 Assessment & Plan (1) S/P laparoscopic appendectomy: S/p lap appy with Dr. Lam on 10/18 for acute appendicitis. - Post-operative care per primary team - Possible discharge today vs. tomorrow. (2) Hypertension: Appears well-controlled as outpatient. - Continue home beta-jorge and ACEi (3) Nocturia: He reports what sounds like urge incontinence (or maybe overflow incontinence) at home. Here, he is having some difficulty with urination. - Continue home tamsulosin - Can monitor PVRs if any concern for urinary retention. (4) Anxiety: - Continue venlafaxine (5) Hyperlipidemia: - Continue statin (6) GERD (gastroesophageal reflux disease): - Continue PPI (7) Glaucoma: - Continue home travoprost (8) DVT prophylaxis: Heparin 5,000 units SQ Q12h per primary team Given medical stability, Hospital Medicine team will sign off. Please re-consult with any questions or concerns. Thank you for letting us assist in the care of this patient! History of Present Illness Attending Physician: Mike Lam MD, FACS History of Present Illness 75yo M w/ hx of glaucoma, HTN who presents for medical consult after an appendectomy for acute appendicitis. He is doing well at the time of my interview. He is having little pain. Not passing much gas and no BM yet, but no nausea or vomiting. Reports some difficulty with urination at present. Allergies Allergy/AdvReac Type Severity Reaction Status Date / Time No Known Allergies Allergy Verified 10/17/20 11:13 Home Medications Medication Instructions Recorded Confirmed Type aspirin 81 mg tablet,delayed 81 mg PO DAILY #90 tab 08/11/19 10/17/20 History release multivitamin 1 tab PO DAILY 08/11/19 10/17/20 History sildenafil (pulm.hypertension) 20 20 mg PO .COMPLEX #20 tab 08/26/19 10/17/20 Rx mg tablet travoprost 0.004 % eye drops 1 drops OP QPM 08/26/19 10/17/20 History metoprolol succinate 25 mg See Rx Instructions .ROUTE 05/03/20 10/17/20 Rx tablet,extended release 24 hr .COMPLEX #90 tablet tamsulosin 0.4 mg capsule 0.8 mg PO DAILY #180 cap 05/11/20 10/17/20 Rx omeprazole 40 mg capsule,delayed 40 mg PO DAILY #30 cap 05/28/20 10/17/20 Rx release rosuvastatin 20 mg tablet See Rx Instructions .ROUTE 05/31/20 10/17/20 Rx .COMPLEX #90 tablet ramipril 10 mg capsule 10 mg PO DAILY #90 cap 06/25/20 10/17/20 Rx fexofenadine 180 mg tablet 180 mg PO DAILY #90 tab 10/03/20 10/17/20 Rx venlafaxine 75 mg capsule,extended 75 mg PO DAILY #90 cap 10/03/20 10/17/20 Rx release 24 hr Patient History Medical History (Updated 10/18/20 @ 15:49 by Ernesto Lara MD) Anxiety Celiac artery stenosis Erectile dysfunction GERD (gastroesophageal reflux disease) Glaucoma (Unknown) Hyperlipidemia Hypertension Impaired fasting glucose Nocturia Surgical History History of cardiac catheterization History of hand surgery History of lithotripsy History of repair of rotator cuff History of tonsillectomy and adenoidectomy Family History Mother Breast cancer Stroke MVA (motor vehicle accident) Father Stroke MVA (motor vehicle accident) Family/Other MVA (motor vehicle accident) Sister Cancer Brother Colorectal cancer Lung cancer Denies family history of Ovarian cancer Prostate cancer Myocardial infarction Social History Smoking Status: Former smoker Age Started Using Tobacco: 16; Age Quit Using Tobacco: 35; packs per day: 2.5; Second Hand Exposure: No; Do You Dip or Chew Tobacco: No; Hx Alcohol Use: No Hx Substance Use: No Preferred Language: Japanese Communication Ability: Effective Visual Impairment: Partially Limited Hearing Ability: Use of Hearing Aid Call Center Team Leader Required: No Beliefs That Will Affect Care: None marital status: Current Living Situation: Spouse Current Living Situation Comment: 3 great-granddaughters current occupational status: retired Feels Safe at Home: Yes Childhood Exposure to Second-Hand Smoke: No caffeine: Yes (decaf coffee, tea) during the past year weight has: remained stable Dental Care, Regularly: Yes Physical Activity Frequency: Daily Seatbelt Use: always Sunscreen Use: Yes (sometimes) Do you think of yourself as: straight/heterosexual Assistive Devices: Glasses Review of Systems Review of Systems: All systems reviewed & are unremarkable except as noted in HPI & below Physical Exam Constitutional: WD/WN, vitals as above Eyes: EOM intact bilaterally; no conjunctival abnormality ENMT: external ear and nose normal, oropharynx normal Neck: trachea midline, no thyromegaly normal visual inspection Respiratory: normal respiratory effort, lungs clear to auscultation no respiratory distress Cardiovascular: RRR, no murmur, no edema Gastrointestinal (Abdomen): Inspection/Auscultation: abdomen normal to inspection and + abdominal surgical incision; abdomen not distended Percussion/Palpation: + abdomen tender and abdomen soft; no guarding and abdomen not rigid Musculoskeletal: no cyanosis or clubbing, extremities motor strength 5/5 Skin: no rashes, warm and dry Neurologic: moves all extremities and awake Psychiatric: Orientation: alert, oriented to person and cooperative Results & Data Results & Data ([facility]) Vital Signs (Past 12 Hours) Vital Signs Temp Pulse Resp BP Pulse Ox 10/18/20 15:13 36.8 C 75 17 135/80 92 10/18/20 07:39 36.9 C 84 16 133/75 91 10/18/20 04:15 36.8 C 79 19 135/72 93 PG Care Time/CCT Total # of Minutes Spent Total Time Spent with Patient: Total time spent is greater than 50% in coordination of care (as documented) at patient's floor/unit and/or counseling patient: Coding Level of Care Code 72255 Inpt Consult Level 4 Diagnoses S/P laparoscopic appendectomy Z90.49 Hypertension I10 Nocturia R35.1 Anxiety F41.9 Hyperlipidemia E78.5 GERD (gastroesophageal reflux disease) K21.9 Glaucoma H40.9 DVT prophylaxis Z29.9
[2020-10-18] MEDS: TRAVOPROST Z 0.004% OPH SOLN 2.5 ML BTL OP SCH (20:26)
--- NOTE | 2020-10-19 07:46 | Surgery Progress Note ---
Date of Service October 19, 2020 Assessment & Plan (1) S/P laparoscopic appendectomy: Patient appears to be doing relatively well Not passing flatus or bowel movement yet Serous drainage from his ROBB drain Continue IV antibiotics Monitor bowel function-possible discharge tomorrow P.o. antibiotics and prescription for pain meds sent to his pharmacy Ambulate Admission and Anticipated Discharge Date Admission Date: October 17, 2020 Results & Data ([facility]) Vital Signs (Past 12 Hours) Vital Signs Temp Pulse Resp BP Pulse Ox 10/18/20 23:20 36.8 C 70 16 128/70 91 PG Care Time/CCT Total # of Minutes Spent Total Time Spent with Patient: Total time spent is greater than 50% in coordination of care (as documented) at patient's floor/unit and/or counseling patient: Coding Level of Care Code None Diagnoses S/P laparoscopic appendectomy Z90.49
[2020-10-19] MEDS: FEXOFENADINE HCL 180 MG TAB PO SCH (08:18)
[2020-10-19] MEDS: ASPIRIN 81 MG ECTAB PO SCH (08:18)
[2020-10-19] MEDS: METOPROLOL SUCC 25MG EXT REL TAB PO SCH (08:18)
[2020-10-19] MEDS: VENLAFAXINE HCL XR 75 MG CAPXR PO SCH (08:18)
[2020-10-19] MEDS: TAMSULOSIN HCL 0.4 MG CAP PO SCH (08:18)
[2020-10-19] MEDS: PANTOprazole 40 MG TAB PO SCH (08:19)
[2020-10-19] MEDS: HEPARIN SOD 5,000 UNIT/0.5 ML VIAL SQ SCH ×2 (08:19→20:20)
[2020-10-19] MEDS: ROSUVASTATIN CALCIUM 20 MG TAB PO SCH (08:19)
[2020-10-19] MEDS: ENALAPRIL MALEATE 10 MG TAB PO SCH (08:19)
[2020-10-19] MEDS: MAGNESIUM HYDROXIDE SUSP 30 ML UDC PO SCH ×2 (12:04→20:20)
[2020-10-19] MEDS: DOCUSATE SODIUM/SENNA 50/8.6MG TAB PO SCH ×2 (12:04→20:19)
[2020-10-19] MEDS: HYDROCODONE/ACETAMOPHEN 5/325MG TAB PO PRN (12:29)
[2020-10-19] MEDS: SODIUM CHLORIDE 0.9% 1000ML 1,000 ML IV SCH (13:26)
--- NOTE | 2020-10-19 15:03 | Electrocardiogram Report ---
Test Reason : Blood Pressure : / mmHG Vent. Rate : 075 BPM Atrial Rate : 075 BPM P-R Int : 196 ms QRS Dur : 096 ms QT Int : 358 ms P-R-T Axes : 057 -03 042 degrees QTc Int : 399 ms Poor data quality, interpretation may be adversely affected Sinus rhythm with occasional Premature ventricular complexes Otherwise normal ECG When compared with ECG of 07-MAY-2012 06:54, Premature ventricular complexes are now Present Confirmed by Scot Mallory ([id number]) on 10/19/2020 3:03:28 PM Referred By: Soniya Will Confirmed By:Scot Mallory
[2020-10-19] MEDS: TRAVOPROST Z 0.004% OPH SOLN 2.5 ML BTL OP SCH (20:20)
[2020-10-19] MEDS ORDERED: FAMOTIDINE 40 MG TABLET PO ONE (22:45)
[2020-10-19] MEDS ORDERED: CALCIUM CARBONATE 500 MG CHEWABLE TAB PO PRN (22:45)
[2020-10-20 06:21] LABS: Basophils # (auto) 0.02 K/uL (0-0.2); Basophils % (auto) 0.2 %; Eosinophils # (auto) 0.17 K/uL (0-0.5); Hemoglobin 13.7 g/dL (14.0-18.0); Immature Granulocytes # (auto) 0.01 K/uL (0.00-0.02); Immature Granulocytes % (auto) 0.1 %; Lymphocytes # (auto) 1.65 K/uL (1.2-3.4); Lymphocytes % (auto) 19.2 %; Mean Corpuscular Hemoglobin 30.4 pg (25-34); Mean Corpuscular Hgb Conc 32.6 g/dL (32-36); Mean Corpuscular Volume 93.1 fL (80-100); Mean Platelet Volume 9.7 fL (7.4-10.4); Monocytes % (auto) 12.8 %; Neutrophils # (auto) 5.64 K/uL (1.4-6.5); Neutrophils % (auto) 65.7 %; Platelet Count 274 K/uL (130-400); RDW Coefficient of Variation 14.2 % (11.5-14.5); RDW Standard Deviation 48.5 fL (36.4-46.3); Red Blood Count 4.51 M/uL (4.7-6.1); White Blood Count 8.59 K/uL (4.8-10.8)
[2020-10-20 06:53] LABS: BUN Creatinine Ratio 21.6 (10-20); Calcium 8.5 mg/dl (8.5-10.1); Creatinine Clr Calc Pharmacy 91.9 ml/min; Est GFR (African American) 98.3; Est GFR (Non-African American) 84.8; Potassium 4.1 mmol/L (3.5-5.1)
[2020-10-20] MEDS: ENALAPRIL MALEATE 10 MG TAB PO SCH (08:12)
[2020-10-20] MEDS: ROSUVASTATIN CALCIUM 20 MG TAB PO SCH (08:12)
[2020-10-20] MEDS: PANTOprazole 40 MG TAB PO SCH (08:13)
[2020-10-20] MEDS: VENLAFAXINE HCL XR 75 MG CAPXR PO SCH (08:13)
[2020-10-20] MEDS: ASPIRIN 81 MG ECTAB PO SCH (08:13)
[2020-10-20] MEDS: METOPROLOL SUCC 25MG EXT REL TAB PO SCH (08:13)
[2020-10-20] MEDS: FEXOFENADINE HCL 180 MG TAB PO SCH (08:13)
[2020-10-20] MEDS: TAMSULOSIN HCL 0.4 MG CAP PO SCH (08:13)
[2020-10-20] MEDS: DOCUSATE SODIUM/SENNA 50/8.6MG TAB PO SCH ×2 (08:14→21:03)
[2020-10-20] MEDS: HEPARIN SOD 5,000 UNIT/0.5 ML VIAL SQ SCH ×2 (08:14→21:03)
[2020-10-20] MEDS: MAGNESIUM HYDROXIDE SUSP 30 ML UDC PO SCH ×3 (08:19→21:07)
--- NOTE | 2020-10-20 08:32 | Surgery Progress Note ---
Date of Service October 20, 2020 Assessment & Plan (1) S/P laparoscopic appendectomy: Patient continues to slowly improve Patient afebrile, WBC 8.5 He is starting to have + bowel function, is passing gas and had 4 loose stools overnight Instructed patient to take it slow with diet, had small amounts of clears today without n/v Will advance diet slowly as patient tolerates pending symptoms Continue IV abx today ROBB drain to remain in place until dispo, currently with serous output as above. bowel fx slowly returning. not ready for d/c yet. slow with diet. increase activity. ROBB looks good. Admission and Anticipated Discharge Date Admission Date: October 17, 2020 Subjective Patient states he is feeling a little better than yesterday. Denies any further nausea/vomiting. Says abdominal pain is improving as he is starting to pass flatus and have some loose stools. Has some complaints of heartburn he received Pepcid for overnight. Physical Exam Physical Exam: awake/alert Respiratory: normal respiratory effort Gastrointestinal (Abdomen): Inspection/Auscultation: + abdomen distended (mild), + abdominal surgical incision (c/d/i) and + abdominal surgical drain present (serous drainage, 575cc documented overnight) Percussion/Palpation: abdomen soft; abdomen nontender Results & Data ([facility]) Vital Signs (Past 12 Hours) Vital Signs Temp Pulse Resp BP Pulse Ox 10/20/20 07:00 36.9 C 82 18 136/80 91 10/20/20 00:53 94 10/19/20 23:37 37 C 78 16 138/81 92 PG Care Time/CCT Total # of Minutes Spent Total Time Spent with Patient: Total time spent is greater than 50% in coordination of care (as documented) at patient's floor/unit and/or counseling patient: Coding Level of Care Code None Diagnoses S/P laparoscopic appendectomy Z90.49
[2020-10-20] MEDS: SODIUM CHLORIDE 0.9% 1000ML 1,000 ML IV SCH (09:26)
[2020-10-20] MEDS ORDERED: SIMETHICONE 80 MG CHEW PO PRN (16:58)
[2020-10-20] MEDS: TRAVOPROST Z 0.004% OPH SOLN 2.5 ML BTL OP SCH (21:03)
[2020-10-20] MEDS: HYDROCODONE/ACETAMOPHEN 5/325MG TAB PO PRN (21:05)
[2020-10-21] MEDS: SODIUM CHLORIDE 0.9% 1000ML 1,000 ML IV SCH (04:59)
[2020-10-21] MEDS: ENALAPRIL MALEATE 10 MG TAB PO SCH (08:22)
[2020-10-21] MEDS: VENLAFAXINE HCL XR 75 MG CAPXR PO SCH (08:22)
[2020-10-21] MEDS: PANTOprazole 40 MG TAB PO SCH (08:22)
[2020-10-21] MEDS: METOPROLOL SUCC 25MG EXT REL TAB PO SCH (08:23)
[2020-10-21] MEDS: TAMSULOSIN HCL 0.4 MG CAP PO SCH (08:23)
[2020-10-21] MEDS: ROSUVASTATIN CALCIUM 20 MG TAB PO SCH (08:23)
[2020-10-21] MEDS: ASPIRIN 81 MG ECTAB PO SCH (08:23)
[2020-10-21] MEDS: FEXOFENADINE HCL 180 MG TAB PO SCH (08:23)
[2020-10-21] MEDS: DOCUSATE SODIUM/SENNA 50/8.6MG TAB PO SCH ×2 (08:23→20:40)
[2020-10-21] MEDS: MAGNESIUM HYDROXIDE SUSP 30 ML UDC PO SCH ×2 (08:24→20:40)
[2020-10-21] MEDS: HEPARIN SOD 5,000 UNIT/0.5 ML VIAL SQ SCH ×2 (08:24→20:40)
--- NOTE | 2020-10-21 08:36 | Surgery Progress Note ---
Date of Service October 21, 2020 Assessment & Plan (1) S/P laparoscopic appendectomy: doing ok but slow return of bowel fx would keep on clears for now increase activity. limit narcotics. Admission and Anticipated Discharge Date Admission Date: October 17, 2020 Subjective pt feeling ok. small bm last evening. still feeling bloated. no n/v. minimal incisional discomfort. Physical Exam Physical Exam: alert. nad. abd: soft. minimal tenderness. ROBB serous. +distended still . no change from yesterday Results & Data ([facility]) Vital Signs (Past 12 Hours) Vital Signs Temp Pulse Resp BP BP Pulse Ox 10/21/20 07:51 36.9 C 82 18 130/69 92 10/20/20 23:50 36.7 C 85 18 130/69 91 PG Care Time/CCT Total # of Minutes Spent Total Time Spent with Patient: Total time spent is greater than 50% in coordination of care (as documented) at patient's floor/unit and/or counseling patient: Coding Level of Care Code None Diagnoses S/P laparoscopic appendectomy Z90.49
[2020-10-21] MEDS: TRAVOPROST Z 0.004% OPH SOLN 2.5 ML BTL OP SCH (20:40)
[2020-10-22] MEDS: SODIUM CHLORIDE 0.9% 1000ML 1,000 ML IV SCH (01:17)
--- NOTE | 2020-10-22 08:10 | Discharge Summary (DS) ---
PRINCIPAL DIAGNOSIS: Acute gangrenous appendicitis. PROCEDURES: The patient underwent laparoscopic appendectomy with drainage. HISTORY OF PRESENT ILLNESS: The patient is a 75-year-old male who presented to the Emergency Room on 10/17/2020 with acute abdominal pain, found to have acute appendicitis. HOSPITAL COURSE: The patient was taken to the operating room where he underwent laparoscopic appendectomy showing gangrenous appendix with drain placement. The patient did have somewhat of an ileus postoperatively, which slowed his discharge, but gradually increase his diet and activity as well as his GI activity and was felt stable for discharge on 10/22/2020 to be continued on antibiotics and followed in the surgical clinic. His drain was to be removed prior to discharge.
[2020-10-22] MEDS: MAGNESIUM HYDROXIDE SUSP 30 ML UDC PO SCH (08:13)
[2020-10-22] MEDS: VENLAFAXINE HCL XR 75 MG CAPXR PO SCH (08:14)
[2020-10-22] MEDS: ENALAPRIL MALEATE 10 MG TAB PO SCH (08:14)
[2020-10-22] MEDS: DOCUSATE SODIUM/SENNA 50/8.6MG TAB PO SCH (08:14)
[2020-10-22] MEDS: HEPARIN SOD 5,000 UNIT/0.5 ML VIAL SQ SCH (08:14)
[2020-10-22] MEDS: ASPIRIN 81 MG ECTAB PO SCH (08:15)
[2020-10-22] MEDS: METOPROLOL SUCC 25MG EXT REL TAB PO SCH (08:15)
[2020-10-22] MEDS: ROSUVASTATIN CALCIUM 20 MG TAB PO SCH (08:15)
[2020-10-22] MEDS: TAMSULOSIN HCL 0.4 MG CAP PO SCH (08:15)
[2020-10-22] MEDS: FEXOFENADINE HCL 180 MG TAB PO SCH (08:15)
[2020-10-22] MEDS: PANTOprazole 40 MG TAB PO SCH (08:15)
== END 2020-10-22 10:19 | disposition home or self-care (01) | DRG 342 ==
LOC: ED 18:30 → 3N 22:32